=== PATIENT | male | born 1965 | race Caucasian/White ===

== ENCOUNTER 2020-04-25 16:24 | Inpatient (IN) | payer OTHER, SELFPAY ==
[~2020-04-25] VITALS: Ht 170.2 cm; Wt 86.2 kg
[2020-04-25 17:53] VITALS: Ht 170.2 cm; Wt 86.2 kg
[2020-04-25 20:47] LABS: BASOPHIL % 0.3 % (0-2); PLATELET COUNT 235 x10^3mcL (130-400); RED CELL DISTRIBUTION WIDTH 13.2 % (11.5-14.5)
[2020-04-25 21:05] LABS: CARBON DIOXIDE 29.5 mmol/L (21-32); CHLORIDE SERUM 102 mmol/L (98-107); CREATININE SERUM 1.2 mg/dL (0.7-1.3); GFR1 > 60 mL/min; GLUCOSE SERUM 82 mg/dL (74-106); POTASSIUM SERUM 3.7 mmol/L (3.5-5.1); SODIUM SERUM 141 mmol/L (136-145)
[2020-04-25 21:11] LABS: ALKALINE PHOSPHATASE 42 U/L (46-116); ALT/SGPT 65 U/L (16-63); AST/SGOT 52 U/L (15-37); BILIRUBIN TOTAL 0.7 mg/dL (0.20-1.00); LACTIC DEHYDROGENASE (LDH) 283 U/L (100-190); TOTAL PROTEIN, SERUM 7.5 g/dL (6.4-8.2)
[2020-04-25 22:54] LABS: C REACTIVE PROTEIN 28.6 mg/dL (<=0.9)
[2020-04-26] VITALS (7 sets, daily range): BP systolic 119–153; BP diastolic 68–88
[2020-04-26 00:26] LABS: CHOLESTEROL/HDL RATIO 4.6
[2020-04-26 07:46] LABS: BASOPHIL % 0.6 % (0-2); PLATELET COUNT 219 x10^3mcL (130-400); RED CELL DISTRIBUTION WIDTH 12.8 % (11.5-14.5)
[2020-04-26 07:58] LABS: CALCIUM 8.4 mg/dL (8.5-10.1); CARBON DIOXIDE 28.5 mmol/L (21-32); CHLORIDE SERUM 107 mmol/L (98-107); GFR1 > 60 mL/min; GLUCOSE SERUM 90 mg/dL (74-106); PHOSPHOROUS 3.3 mg/dL (2.5-4.9); POTASSIUM SERUM 4.1 mmol/L (3.5-5.1); SODIUM SERUM 142 mmol/L (136-145)
[2020-04-26 07:59] LABS: C REACTIVE PROTEIN 20.9 mg/dL (<=0.9)
[2020-04-26 09:03] LABS: microscopic required? NO
[2020-04-26 09:40] LABS: urine erythrocyte NEGATIVE (NEGATIVE)
[2020-04-26 10:23] LABS: AMPHETAMINE QUAL UR NONE DETECTED (See below)
[2020-04-27 05:58] VITALS: BP 147/83
[2020-04-27 08:06] VITALS: BP 141/69
[2020-04-27 12:18] VITALS: BP 149/67
[2020-04-27 16:06] VITALS: BP 171/81
[2020-04-27 20:58] VITALS: BP 150/79
[2020-04-28 05:12] VITALS: BP 159/89
[2020-04-28 06:59] LABS: BASOPHIL % 0.2 % (0-2); PLATELET COUNT 298 x10^3mcL (130-400); RED CELL DISTRIBUTION WIDTH 12.9 % (11.5-14.5)
[2020-04-28 07:21] LABS: CALCIUM 9.6 mg/dL (8.5-10.1); CARBON DIOXIDE 26.1 mmol/L (21-32); CHLORIDE SERUM 107 mmol/L (98-107); GFR1 > 60 mL/min; GLUCOSE SERUM 108 mg/dL (74-106); PHOSPHOROUS 4.1 mg/dL (2.5-4.9); POTASSIUM SERUM 3.8 mmol/L (3.5-5.1); SODIUM SERUM 144 mmol/L (136-145)
[2020-04-28 07:30] LABS: MAGNESIUM 1.9 mg/dL (1.8-2.4)
[2020-04-28 08:26] VITALS: BP 126/90
[2020-04-28 14:20] VITALS: BP 158/79
[2020-04-28 17:45] VITALS: BP 166/88
[2020-04-28 21:01] VITALS: BP 164/86
[2020-04-29 06:08] VITALS: BP 163/78
[2020-04-29 07:46] LABS: C REACTIVE PROTEIN 1.6 mg/dL (<=0.9); CALCIUM 9.3 mg/dL (8.5-10.1); CARBON DIOXIDE 27.6 mmol/L (21-32); CHLORIDE SERUM 105 mmol/L (98-107); GFR1 > 60 mL/min; GLUCOSE SERUM 145 mg/dL (74-106); MAGNESIUM 1.9 mg/dL (1.8-2.4); PHOSPHOROUS 3.4 mg/dL (2.5-4.9); POTASSIUM SERUM 4.2 mmol/L (3.5-5.1); SODIUM SERUM 141 mmol/L (136-145)
[2020-04-29 08:37] VITALS: BP 140/82
[2020-04-29 09:26] LABS: BASOPHIL % 0.2 % (0-2); PLATELET COUNT 307 x10^3mcL (130-400); RED CELL DISTRIBUTION WIDTH 12.5 % (11.5-14.5)
[2020-04-29] MEDS ORDERED: XARELTO20 M1 PO (12:38)
[2020-04-29] MEDS ORDERED: DECADRON6 MG PO (12:38)
[2020-04-29 13:24] VITALS: BP 135/69
[2020-04-29 15:07] VITALS: BP 138/74
== END 2020-04-29 17:00 | disposition home or self-care (01) | DRG 137 ==
LOC: ED 16:24 → DU 23:19
PROVIDERS: Emergency Medicine; Student in an Organized Health Care Education/Training Program; ADMIT Family Medicine; ATTEND Family Medicine
DX: U07.1 COVID-19 (principal); A41.89 Other specified sepsis; J96.01 Acute respiratory failure with hypoxia; E44.1 Mild protein-calorie malnutrition; D68.59 Other primary thrombophilia; J12.89 Other viral pneumonia; D72.829 Elevated white blood cell count, unspecified; Z68.27 Body mass index [BMI] 27.0-27.9, adult
CPT/HCPCS: 36600; 83880; 85378; 87804; C9113; G0378; J0456; J0461; J0696; J1100; J1644; J1650; J7050; Q0092; U0003-CS